=== PATIENT | male | born 1970 | race Caucasian/White ===

== ENCOUNTER 2016-11-15 18:58 | Emergency (ER) | payer OTHER | END 2016-11-15 22:20 | disposition short-term general hospital (02) | LOC: ER 18:58 | DX: A41.9 Sepsis, unspecified organism (principal); R41.82 Altered mental status, unspecified; G93.40 Encephalopathy, unspecified; N39.0 Urinary tract infection, site not specified; R79.89 Other specified abnormal findings of blood chemistry; E11.9 Type 2 diabetes mellitus without complications; Z79.4 Long term (current) use of insulin | CPT/HCPCS: 36415; 51702; 80307; 87502; 96361; 96365; G0480 ==